=== PATIENT | female | born 1990 | race Caucasian/White ===

== ENCOUNTER 2017-10-25 22:39 | Emergency (ER) | payer OTHER ==
[~2017-10-25] VITALS: Ht 165.1 cm; Wt 54.4 kg
[~2017-10-25 22:39] MED LIST: IBUPROFEN600 MG ORAL
[2017-10-25 23:28] VITALS: BP 118/76
[2017-10-26] MEDS ORDERED: IBUPROFEN600 MG ORAL (01:40)
[2017-10-26 01:45] VITALS: BP 108/69
[2017-10-26 01:52] VITALS: BP 108/69
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
== END 2017-10-26 01:52 | disposition home or self-care (01) ==
LOC: EMR 23:15
DX: S16.1XXA Strain of muscle, fascia and tendon at neck level, initial encounter (principal); S20.219A Contusion of unspecified front wall of thorax, initial encounter; V43.52XA Car driver injured in collision with other type car in traffic accident, initial encounter; Y92.410 Unspecified street and highway as the place of occurrence of the external cause; R10.9 Unspecified abdominal pain
CPT/HCPCS: 72050; 99284

== ENCOUNTER 2018-05-09 09:41 | Emergency (ER) | payer OTHER ==
[~2018-05-09] VITALS: Ht 165.1 cm; Wt 53.5 kg
[2018-05-09 10:18] LABS: APPEARANCE,URINE SLIGHTLY CLOUDY; BILIRUBIN, URINE NEGATIVE (NEGATIVE); GLUCOSE, URINE (UA) NEGATIVE (NEGATIVE); KETONES,URINE NEGATIVE (NEGATIVE); LEUKOCYTE ESTERASE ,URINE 2+ (NEGATIVE); NITRITE,URINE NEGATIVE (NEGATIVE); PH,URINE 6 (4.5-8.0); PROTEIN,URINE 2+ (NEGATIVE); UROBILINOGEN,URINE NORMAL MG/DL (0.0-1.0)
[2018-05-09 10:22] LABS: COLOR,URINE YELLOW
[2018-05-09] MEDS ORDERED: NITROFURANTOIN100 M2 ORAL (11:23)
--- NOTE | 2018-05-09 11:24 | Emergency Room Report ---
History of Present Illness General Chief Complaint: Female Urogenital Problems Source: Patient Present Illness HPI Pt. c/o dysuria, urgency, frequency for two days. No fever, no flank/abd/back pain. + history of UTIs. No vaginal d/c. Not sexually active. Was on Bactrim for same; finished yesterday. Not improved. Allergies: Coded Allergies: No Known Allergies (Unverified , 08/17/15) Patient History Last Menstrual Period: 3 weeks ago Now: No Nursing Documentation-[facility] Past Medical History: No Stated History Review of Systems Constitutional: Reports: no symptoms Eye: Reports: no symptoms ENT: Reports: no symptoms Respiratory: Reports: no symptoms Cardiovascular: Reports: no symptoms Gastrointestinal: Reports: no symptoms Genitourinary: Reports: see HPI, dysuria, frequency, pain Musculoskeletal: Reports: no symptoms Skin: Reports: no symptoms Psychiatric: Reports: no symptoms Neurological: Reports: no symptoms Endocrine: Reports: no symptoms Hematologic/Lymphatic: Reports: no symptoms Allergic: Reports: no symptoms All Other Systems: negative except mentioned in HPI Physical Exam Vital Signs Date Time Temp Pulse Resp B/P (MAP) Pulse Ox O2 Delivery O2 Flow Rate FiO2 05/09/18 09:42 98.2 86 18 107/74 98 Room Air 98.2 Sp02 EP Interpretation: reviewed, normal General Appearance: normal inspection, well appearing, no apparent distress, alert, GCS 15, non-toxic Head: normocephalic, atraumatic Eyes: bilateral eye normal inspection, bilateral eye PERRL, bilateral eye EOMI ENT: normal ENT inspection, hearing grossly normal, normal pharynx, no angioedema, normal voice, moist mucus membranes Neck: normal inspection, full range of motion, supple, no meningismus, no bony tend Respiratory: normal inspection, lungs clear, normal breath sounds, no rhonchi, no respiratory distress, no retraction, no accessory muscle use, no wheezing Cardiovascular #1: normal inspection, regular rate, rhythm, no edema Gastrointestinal: normal inspection, normal bowel sounds, non tender, soft, no mass, non-distended Musculoskeletal: gait/station normal, normal range of motion Neurologic: normal inspection, alert, oriented x3, responsive, motor strength/ tone normal Psychiatric: normal inspection, judgement/insight normal, memory normal Suicide Risk Assessment: Suicidal Ideation: No Had intent to initiate attempt: No Pt's plan for suicide attempt: No Has means to complete attempt: No Skin: normal inspection, normal color, no rash, warm/dry Medical Decision Making Diagnostic Impression: Primary Impression: Dysuria ER Course d/w patient that does not appear to be UTI based upon urine. also hx. unusual. pt. gets these symptoms second half of every month. 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 Last Vital Signs Date Time Temp Pulse Resp B/P (MAP) Pulse Ox O2 Delivery O2 Flow Rate FiO2 05/09/18 09:42 98.2 86 18 107/74 98 Room Air 98.2 Status: improved Disposition: HOME, SELF-CARE Scripts Nitrofurantoin Monohyd/M-Cryst* (MACROBID 100 MG*) 100 Mg Capsule 100 MG ORAL EVERY 12 HOURS, #10 CAP Prov: Vidal Gates M.D. 05/09/18 Referrals: Adrian BROOKS,REFERRING (PCP) Patient Instructions: Urinary Tract Infection Vidal Gates M.D. May 09, 2018 11:24
[2018-05-09 11:41] VITALS: BP 110/68
[2018-05-09 13:17] LABS: BILIRUBIN, URINE NEGATIVE (NEGATIVE); GLUCOSE, URINE (UA) NEGATIVE (NEGATIVE); KETONES,URINE NEGATIVE (NEGATIVE); LEUKOCYTE ESTERASE ,URINE 1+ (NEGATIVE); NITRITE,URINE NEGATIVE (NEGATIVE); PH,URINE 6 (4.5-8.0); PROTEIN,URINE 1+ (NEGATIVE); UROBILINOGEN,URINE 1 MG/DL (0.0-1.0)
[2018-05-09 13:44] LABS: COLOR,URINE YELLOW
[2018-05-09 13:45] LABS: APPEARANCE,URINE SLIGHTLY CLOUDY
== END 2018-05-09 11:41 | disposition home or self-care (01) ==
LOC: EMR 10:01
DX: R30.0 Dysuria (principal); R39.15 Urgency of urination; R35.0 Frequency of micturition
CPT/HCPCS: 81001; 87086; 99283

== ENCOUNTER 2018-07-04 11:38 | Emergency (ER) | payer OTHER ==
[~2018-07-04] VITALS: Ht 165.1 cm; Wt 54.4 kg
[~2018-07-04 11:38] MED LIST changes: +NITROFURANTOIN100 M2 ORAL
[2018-07-04] MEDS ORDERED: PROBIOTIC1 EAC5 PO (11:45)
[2018-07-04] MEDS ORDERED: [UNRECOGNIZED DRUG - OTHER] (11:45)
--- NOTE | 2018-07-04 12:11 | Emergency Room Report ---
History of Present Illness General Chief Complaint: Pain Source: Patient, Medical Record Present Illness HPI 28-year-old female patient presents ER complaining of urinary complaints for the past 3 months. Patient was previously seen in ER for similar complaints, states was discharged home with antibiotics and was told not to take antibiotics due to lack of UA findings. Patient reports burning pain over her suprapubic area and "left ovary area" during this time. Denies burning with urination. Reports frequency and urgency. Denies diarrhea. Denies flank pain. Denies fever, chest pain, shortness breath, vomiting, constipation, diarrhea, pain with walking. Reports no pain symptoms currently. Declines pain medication at this time. Reports has not seen primary care provider, [facility] appointment scheduled for next month. Reports no recent sexual activity. Denies vaginal discharge or foul smelling odor. Reports history of ovarian cysts. REports currently on control. Reports hx of spotting between menses for past several months. Allergies: Coded Allergies: No Known Allergies (Unverified , 08/17/15) Patient History Past Medical History: see triage record Last Menstrual Period: 06/13/18 Reviewed Nursing Documentation: PMH: Agreed; PSxH: Agreed Nursing Documentation-PMH Past Medical History: No History, Except For Hx Cancer: No - ovarian cyst Review of Systems All Other Systems: negative except mentioned in HPI Physical Exam Vital Signs Date Time Temp Pulse Resp B/P (MAP) Pulse Ox O2 Delivery O2 Flow Rate FiO2 07/04/18 11:42 97.7 80 18 110/69 99 Room Air Sp02 EP Interpretation: reviewed, normal General Appearance: well appearing, no apparent distress, alert, GCS 15, non- toxic Head: normocephalic, atraumatic Eyes: bilateral eye normal inspection, bilateral eye PERRL ENT: hearing grossly normal, normal pharynx, no angioedema, normal voice, uvula midline, moist mucus membranes Neck: full range of motion Respiratory: lungs clear, normal breath sounds, no rhonchi, no respiratory distress, no accessory muscle use, no wheezing, speaking full sentences Cardiovascular #1: regular rate, rhythm, no edema Gastrointestinal: non tender, soft, no mass, non-distended, no guarding, no rebound Genitourinary: no CVA tenderness, deferred Musculoskeletal: back normal, digits/nails normal, gait/station normal, normal range of motion, non-tender Neurologic: alert, oriented x3, responsive, motor strength/tone normal, sensory intact Psychiatric: mood/affect normal Skin: no rash Lymphatic: no adenopathy Medical Decision Making PA Attestation Dr. Pedroza is my supervising Physician whom patient management has been discussed with. Diagnostic Impression: Primary Impression: Frequency of urination Additional Impressions: Retroverted uterus Spotting ER Course Pt presents to ED c/o burning suprapubic pain and frequency,urgency. DDX considered but are not limited to cystitis, pyelonephritis, STI, vaginitis, , ovarian cysts, ovarian torsion, fibroids. 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 no circumoral pallor, moist mucous members, cap refill less than 2 seconds, low suspicion for anemia VITAL SIGNS are WNL, patient is afebrile. Ordered UA. ER COURSE UA results unremarkable, improved from previous visit, no signs of infection, do not indicate UTI. Urine negative If concern for STI, followup with STI clinic for testing and treatment. Denies STI concern. Pelvic US shows no acute disease, no torsion, retroverted uterus. Discuss results with the patient. Provided patient with copy of results. Instructed patient to followup with PCP and discuss results of report with patient, discuss need for further treatment and referral. Followup with OBGYN to discuss pain symptoms and spotting. Followup with urology specialist. Discuss referral with PCP. Patient is resting comfortably in chair, nontoxic appearing, in no acute distress. Patient states they feel better and is ready to go home. DISCHARGE -Rx provided for Phenazopyridine for pain. SE: turns urine orange. Patient is stable for discharge. Patient resting comfortably, in no acute distress, nontoxic appearing, talking without difficulty. Will provide with patient care instructions and any necessary prescriptions. Patient understands and agrees to treatment plan. Patient encouraged to drink plenty of fluids. Patient to take medication as instructed. Care plan and follow-up instructions provided. Patient questions asked and answered. Reports understanding and agreement to treatment plan. Patient instructed to follow-up with primary care provider in 3 - 5 days. ER precautions given. Patient instructed to return to ER immediately for any new or worsening of symptoms. Including but not limited to fever, abdominal pain , intractable vomiting. - Please note that this Emergency Department Report was dictated using [employer] planner technology software, occasionally this can lead to erroneous entry secondary to interpretation by the dictation equipment. Labs Test 07/04/18 12:08 Urine Color Pale yellow Urine Appearance Clear Urine pH 8 (4.5-8.0) Urine Specific [place] 1.005 (1.005-1.035) Urine Protein Negative (NEGATIVE) Urine Glucose (UA) Negative (NEGATIVE) Urine Ketones Negative (NEGATIVE) Urine Blood 3+ (NEGATIVE) Urine Nitrite Negative (NEGATIVE) Urine Bilirubin Negative (NEGATIVE) Urine Urobilinogen Normal MG/DL (0.0-1.0) Urine Leukocyte Esterase Negative (NEGATIVE) Urine RBC 2-4 /HPF (0 - 2) Urine WBC 0 /HPF (0 - 2) Urine Squamous Epithelial Cells Occasional /LPF Urine Bacteria Occasional /HPF (NONE) Urine HCG, Qualitative Negative (NEGATIVE) CT/MRI/US Diagnostic Results CT/MRI/US Diagnostic Results : Imaging Test Ordered: Pelvic US Impression negative pelvic ultrasound. No acute findings. Retroverted uterus Last Vital Signs Date Time Temp Pulse Resp B/P (MAP) Pulse Ox O2 Delivery O2 Flow Rate FiO2 07/04/18 11:42 97.7 80 18 110/69 99 Room Air Status: improved Disposition: HOME, SELF-CARE Condition: Stable Scripts Phenazopyridine Hcl* (PYRIDIUM*) 100 Mg Tablet 100 MG ORAL THREE TIMES A DAY, #10 TAB Prov: Suhas Grace 07/04/18 Patient Instructions: Dysfunctional Uterine Bleeding, Dysuria, Urinary Frequency Additional Instructions: Followup with primary care provider and followup with and./or OBGYN. Drink plenty of fluids. Take medications as directed. Pyridium has SE of turning urine orange. Patient questions asked and answered. ER precautions given, patient instructed to return to ER immediately for any new or worsening of symptoms. Suhas Grace Jul 04, 2018 12:11
[2018-07-04 12:15] VITALS: BP 110/69
[2018-07-04 12:31] LABS: APPEARANCE,URINE CLEAR; BILIRUBIN, URINE NEGATIVE (NEGATIVE); COLOR,URINE PALE YELLOW; GLUCOSE, URINE (UA) NEGATIVE (NEGATIVE); KETONES,URINE NEGATIVE (NEGATIVE); LEUKOCYTE ESTERASE ,URINE NEGATIVE (NEGATIVE); NITRITE,URINE NEGATIVE (NEGATIVE); PH,URINE 8 (4.5-8.0); PROTEIN,URINE NEGATIVE (NEGATIVE); UROBILINOGEN,URINE NORMAL MG/DL (0.0-1.0)
[2018-07-04 13:30] VITALS: BP 117/72
--- NOTE | 2018-07-04 13:52 | Diagnostic Imaging Report ---
Indication: Suprapubic and pelvic pain. Vaginal spotting. Technique: Grayscale and duplex Doppler imaging of the pelvis performed utilizing a transabdominal and endovaginal scan. Comparison: None Findings: The size, contour, and configuration of the uterus is within normal limits. Uterus is retroverted. The endometrium is uniformly echogenic and normal in thickness. Endometrium measures 3 mm. Uterus measures 7 x 4 x 3 cm. The ovaries appear normal bilaterally with good dopplerable blood flow. There is no significant free fluid identified. Right ovary measures 3.1 x 2.5 x 5 1.4 cm. Left ovary measures 2.9 x 1.9 x 1.6 cm. IMPRESSION: Negative pelvic ultrasound. No acute findings. Retroverted uterus.
[2018-07-04] MEDS ORDERED: PHENAZOPYRIDIN100 MG ORAL (14:04)
== END 2018-07-04 13:30 | disposition home or self-care (01) ==
LOC: EMR 12:34
DX: R35.0 Frequency of micturition (principal); N85.4 Malposition of uterus; R39.15 Urgency of urination; R10.2 Pelvic and perineal pain; N89.8 Other specified noninflammatory disorders of vagina
CPT/HCPCS: 76830; 76856; 81003; 81025; 99284